=== PATIENT | male | born 1970 | race Two or more races ===

== ENCOUNTER 2020-01-05 13:02 | Emergency (ER) | payer MEDICAID ==
[~2020-01-05] VITALS: Ht 180.3 cm; Wt 77.1 kg
--- NOTE | 2020-01-05 13:13 | NUR ---
[facility] 86 Bystander called "found in alleyway. Acting out/singing", to ER bed 14, homeless, hooked to monitor, changed to hospital gown, provided w warm blanket, patient ao x 3, breathing even and unlabored, Dr Russo at bedside
[2020-01-05] MEDS ORDERED: OLANZAPINE 5 MG TABLET ONE (13:28)
[2020-01-05 13:30] LABS: BASOPHILS # (AUTO) 0.2 /CMM (0.0-0.2); BASOPHILS % (AUTO) 2.9 % (0.0-2.0); EOSINOPHILS % (AUTO) 7.1 % (0.0-6.0); HEMATOCRIT 43 % (39-51); HEMOGLOBIN 14.4 g/dL (13.5-17.5); LYMPHOCYTES # (AUTO) 1.3 /CMM (0.8-4.8); LYMPHOCYTES % (AUTO) 16.2 % (20.0-44.0); MEAN CORPUSCULAR HGB CONC 34 g/dl (31.0-36.0); MEAN CORPUSCULAR VOLUME 97 fL (80-96); MONOCYTES # (AUTO) 0.5 /CMM (0.1-1.30); MONOCYTES % (AUTO) 6.3 % (2.0-12.0); NEUTROPHILS # (AUTO) 5.5 /CMM (1.8-8.9); NEUTROPHILS % (AUTO) 67.5 % (43.0-81.0); PLATELET COUNT (AUTO) 261 /CMM (150-450); RED BLOOD CELL COUNT(AUTO) 4.38 MIL/uL (4.5-6.0); WHITE BLOOD COUNT (AUTO) 8.2 K/uL (4.3-11.0)
[2020-01-05] MEDS ORDERED: OLANZAPINE 5 MG TABLET PO ONE (13:30)
[2020-01-05 13:37] LABS: CALCIUM, SERUM 8.2 mg/dL (8.5-10.1); CARBON DIOXIDE 27 mmol/L (21-32); CHLORIDE 106 mmol/L (98-107); GLUCOSE 112 mg/dL (74-106); POTASSIUM 3.4 mmol/L (3.5-5.1); SODIUM SERUM 140 mmol/L (136-145); UREA NITROGEN, BLOOD 15 mg/dL (7-18)
[2020-01-05 13:42] LABS: ALANINE AMINOTRANSFERASE 32 U/L (12-78); ALBUMIN 3.4 g/dL (3.4-5.0); ALCOHOL, BLOOD < 3 mg/dL (0-0); ALKALINE PHOSPHATASE 75 U/L (46-116); ASPARTATE AMINOTRANSFERASE 26 U/L (15-37); BILIRUBIN,DIRECT 0.2 mg/dL (0.0-0.2); BILIRUBIN,TOTAL 0.5 mg/dL (0.2-1.0); TOTAL PROTEIN, SERUM 6.5 g/dL (6.4-8.2)
[2020-01-05 13:43] LABS: SALICYLATE 0.3 mg/dL (2.8-20.0)
[2020-01-05 13:44] LABS: ACETAMINOPHEN < 2 ug/ml (10-30)
--- NOTE | 2020-01-05 13:57 | NUR ---
[facility] [place] [phone]
--- NOTE | 2020-01-05 14:16 | NUR ---
urine sample collected and sent to lab
[2020-01-05 14:31] LABS: APPEARANCE,URINE Clear (CLEAR); BILIRUBIN,URINE Negative (NEGATIVE); BLOOD, URINE Negative Ery/uL (NEGATIVE); COLOR,URINE Yellow (YELLOW); KETONES,URINE Negative (NEGATIVE); LEUKOCYTE ESTERASE ,URINE Negative (NEGATIVE); NITRITE, URINE Negative (NEGATIVE); PH,URINE 8.5 (5.0-8.0); PROTEIN,URINE Negative (NEGATIVE); UGLUCOSE Negative (NEGATIVE); UROBILINOGEN,URINE 0.2 EU/dL (0.2)
--- NOTE | 2020-01-05 14:35 | NUR ---
SANDI CALLED BACK AND WILL BE HERE IN A LITTLE WHILE.
--- NOTE | 2020-01-05 16:03 | NUR ---
PATIENT IN BED ASLEEP, AROUSABLE BY VOICE BUT COMES BACK TO SLEEP IMMEDIATELY. HOOKED TO MONITOR, KEPT SAFE AND COMFORTABLE. WILL CONTINUE TO MONITOR ACCORDINGLY
--- NOTE | 2020-01-05 18:27 | NUR ---
Patient is ambulatory with steady gait. Refuses offer of care home placement. Patient given list of available shelters in surrounding area. Name band removed, all belongings given, on proper clothing upon discharge
--- NOTE | 2020-01-05 18:28 | NUR ---
PT. Declines homeless custodial placemet. VERBALIZED UNDERSTANDING OF AFTERCARE INSTRUCTIONS.Patient discharged to home in stable condition. Written and verbal after care instructions given. Patient verbalizes understanding of instruction.
[2020-01-05 18:30] VITALS: BP 134/71
== END 2020-01-05 18:31 | disposition home or self-care (01) ==
LOC: ER 13:05
DX: F29 Unspecified psychosis not due to a substance or known physiological condition (principal); Z59.0 Homelessness
CPT/HCPCS: 36415; 80048; 80076; 80305; 80307; 80329; 81001; 85025; 99285; G0480; 81000-TC